=== PATIENT | female | born 1950 | race Caucasian/White ===

== ENCOUNTER 2020-11-07 11:07 | Emergency (ER) | payer SELFPAY ==
[2020-11-07 12:35] LABS: HEMOGLOBIN 12.9 gm/dl (12.3-15.3); RED BLOOD COUNT 4.24 M/UL (4.00-5.10); WHITE BLOOD COUNT 8.2 K/UL (4.5-11.0)
[2020-11-07 12:58] LABS: BUN/CREATININE RATIO 22 (0-10)
== END 2020-11-07 20:00 | disposition home or self-care (01) ==
LOC: ER1 11:07
PROVIDERS: Emergency Medicine; Physician Assistant
DX: F22 Delusional disorders (principal); R91.8 Other nonspecific abnormal finding of lung field; F17.200 Nicotine dependence, unspecified, uncomplicated
CPT/HCPCS: 71045; 80053; 80307; 81001; 82140; 85025; 99285; G0480